=== PATIENT | male | born 1930 | race Caucasian/White ===

== ENCOUNTER → 2016-05-19 | Outpatient (CLI) | payer OTHER | LOC: BMCIMAGING 12:27 | PROVIDERS: ATTEND Internal Medicine | DX: J42 Unspecified chronic bronchitis (principal) ==

== ENCOUNTER → 2016-08-23 | Outpatient (CLI) | payer OTHER | LOC: FLAB 14:22 | PROVIDERS: ATTEND Internal Medicine | DX: R10.30 Lower abdominal pain, unspecified (principal) ==

== ENCOUNTER → 2016-08-24 | Outpatient (CLI) | payer OTHER ==
[~2016-08-24] MED LIST: IOPAMIDOL (ISOVUE-300) 100 ML BTL ONE
== END ==
LOC: FIMAGING 15:21
PROVIDERS: ATTEND Internal Medicine
DX: R10.30 Lower abdominal pain, unspecified (principal)
CPT/HCPCS: 74177; Q9967

== ENCOUNTER → 2016-11-22 | Outpatient (CLI) | payer OTHER | LOC: BMCIMAGING 10:10 | PROVIDERS: ATTEND Physician Assistant | DX: M25.812 Other specified joint disorders, left shoulder (principal); Z96.611 Presence of right artificial shoulder joint ==

== ENCOUNTER 2017-02-01 11:10 | Emergency (ER) | payer OTHER ==
[2017-02-01 11:18] VITALS: O2SAT 96
--- NOTE | 2017-02-01 11:41 | EDPHY ---
H & P Stated Complaint: pt fell last tue/has been off aspirin x 5 days/swelling r lower leg Time Seen by Provider: 02/01/17 11:41 HPI/ROS: CHIEF COMPLAINT: Right lower extremity swelling HISTORY OF PRESENT ILLNESS: The patient presents to the ED for evaluation of right lower extremity swelling. The patient had a mechanical fall last week. He has been ambulatory since that time. He has noticed over the past several days increased pain, swelling and calf tenderness on the right leg. The patient is not anticoagulated. He had been on aspirin which he stopped 5 days ago in anticipation of carpal tunnel surgery today. The patient was being evaluated by his orthopedic surgeon preoperatively when the asymmetric calf swelling was noted in the patient was referred to the ED for further evaluation. Patient denies any acute numbness or weakness. The patient denies prior history of DVT. Patient denies any chest pain or shortness of breath. The patient reports his pain is moderate in nature and worsened with palpation and ambulation. REVIEW OF SYSTEMS: A comprehensive 10 point review of systems is otherwise negative aside from elements mentioned in the history of present illness. Source: Patient Exam Limitations: No limitations - Personal History Current Tetanus/Diphtheria Vaccine: Yes Tetanus Vaccine Date: >10 YRS - Medical/Surgical History Hx Asthma: No Hx Chronic Respiratory Disease: No Hx Diabetes: No Hx Cardiac Disease: Yes Hx Renal Disease: No Hx Cirrhosis: No Hx Alcoholism: No Hx HIV/AIDS: No Hx Splenectomy or Spleen Trauma: No Other PMH: Pacemaker and arotic and yeast infection x 1 year. HTN - Social History Smoking Status: Former smoker - Physical Exam Exam: General: Elderly male, slightly obese, no acute distress Head: Atraumatic Eyes: Pupils equal, round, reactive ENT, Mouth: No hemotympanum, no oral trauma Neck: Nontender, trachea midline Respiratory: No chest wall tender, subcutaneous air, lungs clear bilaterally Cardiovascular: Regular rate and rhythm Abdomen: Abdomen is soft and nontender, pelvis stable Skin: Old abrasion noted to the right anterior smart with minimal surrounding erythema Back: No midline T/L/S pain Extremities: Asymmetric swelling and calf tenderness noted in the right leg, palpable dorsalis pedis and posterior tibial pulse Neurological: A&Ox3, normal motor function, normal sensory exam Constitutional: Initial Vital Signs Temperature (C) 36.4 C 02/01/17 11:16 Heart Rate 84 02/01/17 11:16 Respiratory Rate 18 02/01/17 11:16 Blood Pressure 116/97 H 02/01/17 11:16 O2 Sat (%) 96 02/01/17 11:16 O2 Delivery Mode Room Air Allergies/Adverse Reactions: No Known Allergies Allergy (Verified 02/01/17 11:15) Home Medications: Medication Instructions Recorded Metoprolol Succinate Xr [Toprol Xl 25 mg PO DAILY 04/06/12 25 mg (*)] Medical Decision Making - Diagnostics Imaging Results: Imaging Impressions Extremity Venous Study 02/01/17 11:55 Impression: No deep venous thrombosis right leg. 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 Results called and discussed with Dr. Sincere Burton on 02/01/2017, 13:00. Tibia/Fibula X-Ray 02/01/17 11:56 Impression: No evidence for acute fracture. Mild degenerative change in the right knee with mild suprapatellar joint effusion and loose body. Prepatellar bursitis or hematoma. Vascular calcifications which could represent atherosclerotic disease or diabetes. ED Course/Re-evaluation: The patient presents to the ED for evaluation of right calf pain and swelling. The patient has evidence of old abrasions on his examination but no clinical evidence of a significant cellulitis. The patient is afebrile and has no leukocytosis. Given his asymmetric calf pain and swelling a ultrasound was ordered which demonstrates a complex Roberts cyst but no evidence of a DVT. The patient has no clinical evidence of arterial insufficiency. Patient was informed of the diagnosis of Roberts cyst. I have asked the patient to repeat the ultrasound in 2 weeks for any ongoing pain or swelling. The patient has been advised to return to the ED for increasing redness, fever, pain or other concerns. Radiographs of the extremity demonstrated no evidence of an acute fracture. The patient does have vascular calcifications but no evidence of severe arterial insufficiency in the ED. Differential Diagnosis: Differential diagnosis considered includes cellulitis, abscess, DVT, Roberts cyst , arterial insufficiency - Data Points Laboratory Results: Laboratory Results 02/01/17 12:05 02/01/17 12:05 02/01/17 02/01/17 02/01/17 12:05 12:05 12:05 WBC 6.50 10^3/uL 10^3/uL (3.80-9.50) RBC 4.35 10^6/uL L 10^6/uL (4.40-6.38) Hgb 14.0 g/dL g/dL (13.7-17.5) Hct 40.4 % % (40.0-51.0) MCV 92.9 fL fL (81.5-99.8) MCH 32.2 pg pg (27.9-34.1) MCHC 34.7 g/dL g/dL (32.4-36.7) RDW 13.6 % % (11.5-15.2) Plt Count 165 10^3/uL 10^3/uL (150-400) MPV 9.3 fL fL (8.7-11.7) Neut % (Auto) 63.5 % % (39.3-74.2) Lymph % (Auto) 22.3 % % (15.0-45.0) Sterling % (Auto) 10.9 % % (4.5-13.0) Eos % (Auto) 2.2 % % (0.6-7.6) Baso % (Auto) 0.8 % % (0.3-1.7) Nucleat RBC Rel Count 0.0 % % (0.0-0.2) Absolute Neuts (auto) 4.13 10^3/uL 10^3/uL (1.70-6.50) Absolute Lymphs (auto) 1.45 10^3/uL 10^3/uL (1.00-3.00) Absolute Monos (auto) 0.71 10^3/uL 10^3/uL (0.30-0.80) Absolute Eos (auto) 0.14 10^3/uL 10^3/uL (0.03-0.40) Absolute Basos (auto) 0.05 10^3/uL 10^3/uL (0.02-0.10) Absolute Nucleated RBC 0.00 10^3/uL 10^3/uL (0-0.01) Immature Gran % 0.3 % % (0.0-1.1) Immature Gran # 0.02 10^3/uL 10^3/uL (0.00-0.10) PT 14.5 SEC SEC (12.0-15.0) INR 1.14 (0.83-1.16) APTT 31.4 SEC SEC (23.0-38.0) Sodium 136 mEq/L mEq/L (134-144) Potassium 4.4 mEq/L mEq/L (3.5-5.2) Chloride 102 mEq/L mEq/L (97-110) Carbon Dioxide 23 mEq/l mEq/l (22-31) Anion Gap 11 mEq/L mEq/L (8-16) BUN 17 mg/dL mg/dL (7-23) Creatinine 1.1 mg/dL mg/dL (0.7-1.3) Estimated GFR > 60 Glucose 89 mg/dL mg/dL (70-100) Calcium 9.3 mg/dL mg/dL (8.5-10.4) Departure - Departure Disposition: Home, Routine, Self-Care Clinical Impression: Roberts cyst Qualifiers: Laterality: right Qualified Code(s): M71.21 - 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 Please follow-up with your primary care provider as scheduled. 2. I recommend repeating the ultrasound in 2 weeks for any ongoing pain or swelling. 3. Return to the ED immediately for any increasing pain, redness, fever swelling or other concerns. Referrals: Mejia Simmons MD [Primary Care Provider] - As per Instructions
[2017-02-01 12:18] LABS: % IMMATURE GRANULYOCYTES 0.3 % (0.0-1.1); ABSOLUTE IMMATURE GRANULOCYTES 0.02 10^3/uL (0.00-0.10); ADD DIFF? NO; ADD MORPH? NO; ADD SCAN? NO; ATYPICAL LYMPHOCYTE FLAG 10 (0-99); FRAGMENT RBC FLAG 10 (0-99); HEMATOCRIT 40.4 % (40.0-51.0); LEFT SHIFT FLG 0 (0-99); LIPEMIA HEMOLYSIS FLAG 90 (0-99); MEAN CELL HEMOGLOBIN 32.2 pg (27.9-34.1); MEAN CELL HEMOGLOBIN CONCENTR. 34.7 g/dL (32.4-36.7); MEAN CELL VOLUME 92.9 fL (81.5-99.8); MEAN PLATELET VOLUME 9.3 fL (8.7-11.7); PLATELET CLUMPS FLAG 20 (0-99); PLATELET COUNT 165 10^3/uL (150-400); RED BLOOD CELL COUNT 4.35 10^6/uL (4.40-6.38); RED CELL DISTRIBUTION WIDTH 13.6 % (11.5-15.2)
[2017-02-01 12:27] LABS: INR 1.14 (0.83-1.16); PROTIME(PATIENT) 14.5 SEC (12.0-15.0)
[2017-02-01 12:28] LABS: APTT 31.4 SEC (23.0-38.0)
[2017-02-01 12:39] LABS: ANION GAP 11 mEq/L (8-16); CALCIUM 9.3 mg/dL (8.5-10.4); CARBON DIOXIDE 23 mEq/l (22-31); CHLORIDE 102 mEq/L (97-110); CREATININE 1.1 mg/dL (0.7-1.3); GLOMERULAR FILTRATION RATE > 60; GLUCOSE 89 mg/dL (70-100); POTASSIUM 4.4 mEq/L (3.5-5.2); SODIUM 136 mEq/L (134-144)
[2017-02-01 13:40] VITALS: BP 121/71; PULSE 75; RESP 16; TEMP 97.7
== END 2017-02-01 13:43 | disposition home or self-care (01) ==
DX: M71.21 Synovial cyst of popliteal space [Baker], right knee (principal); I10 Essential (primary) hypertension; Z95.0 Presence of cardiac pacemaker; Z87.891 Personal history of nicotine dependence

== ENCOUNTER → 2017-04-09 | Outpatient (CLI) | payer OTHER | LOC: BMCIMAGING 13:23 | PROVIDERS: ATTEND Emergency Medicine | DX: M79.671 Pain in right foot (principal) ==

== ENCOUNTER → 2017-04-20 | Outpatient (CLI) | payer OTHER | LOC: BMCIMAGING 14:11 | PROVIDERS: ATTEND Podiatrist Foot & Ankle Surgery | DX: M71.21 Synovial cyst of popliteal space [Baker], right knee (principal) ==

== ENCOUNTER 2017-12-22 08:50 | Day surgery (SDC) | payer OTHER ==
--- NOTE | 2017-12-22 06:30 | PDHPUP ---
History & Physical Update H&P update statement: This history and physical update is based on an assessment of the patient which was completed after admission or registration (within 24 hours), but prior to the surgery/procedure. H&P update: no change in patient's condition since H&P completed
[2017-12-22] MEDS ORDERED: LR 1,000 ML IV SCH (09:02)
[2017-12-22] MEDS ORDERED: ceFAZolin 2 GM/DEXTROSE 100 ML IV ONE (09:02)
[2017-12-22] MEDS ORDERED: LR 1,000 ML IV ONE (09:03)
[2017-12-22] MEDS ORDERED: LIDOCAINE 1% 2 ML INJ ID PRN (09:03)
--- NOTE | 2017-12-22 10:21 | PDANEPAE ---
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 htn. cad. chf. hyperlipidemia. tavr 05/2012. 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 bph. frequency - Liver History Hx Hepatic Disorders: No Hepatic History Comment: UTI-in hospital ABX, resolved. BPH-med. - Neurological & Psychiatric Hx Hx Neurological and Psychiatric Disorders: No - Cancer History Hx Cancer: No - Congenital Disorder History Hx Congenital Disorders: No Congenital History Comment: Stomach malformation-corrected. - GI History Hx Gastrointestinal Disorders: No - Other Health History Other Health History: wears reading classes. wears bilateral hearing aides. bilateral lower leg cellulitis at the beginning of the year - Chronic Pain History Chronic Pain: Yes (right wrist) - Surgical History Prior Surgeries: 09/2017 emergent zelda. appy 194. pacer 02/2012. knee surgery 1977. lumbar spine surgery 1993. nose surgery 1995. stomach surgery 1931. TAVR 05/19/12 ANE Review of Systems Review of Systems: - Exercise capacity METS (RN): 4 METS - Pacemaker Pacemaker Type: Permanent Pacer/Defib Pacemaker Fixer Supervisor: [employer] Pacemaker Model: EVIADRT Pacemaker Mode: DDD-CLS Pacemaker Set Rate: 70 Date Pacemaker Last Checked: 09/14/17 ANE Patient History - Allergies Allergies/Adverse Reactions: No Known Allergies Allergy (Verified 12/21/17 12:23) - Home Medications Home medications: home medication list seen and reviewed Home Medications: Metoprolol Succinate Xr [Toprol Xl 25 mg (*)] DAILY 04/06/12 [Last Taken 1 Day Ago ~12/21/17] Aspirin 81mg (*) 12/21/17 [Last Taken 1 Day Ago ~12/21/17] Atorvastatin Calcium 12/21/17 [Last Taken 1 Day Ago ~12/21/17] Flomax 12/21/17 [Last Taken 1 Day Ago ~12/21/17] Lasix 12/21/17 [Last Taken 12/21/17] - NPO status NPO Since - Liquids (Date): 12/21/17 NPO Since - Liquids (Time): 19:00 NPO Since - Solids (Date): 12/21/17 NPO Since - Solids (Time): 19:00 - Anes Hx Anes Hx: no prior problems - Smoking Hx Smoking Status: Former smoker - Family Anes Hx Family Hx Anesthesia Complications: none ANE Labs/Vital Signs - Labs Result Diagrams: 12/22/17 09:45 - Vital Signs Blood Pressure: 154/94 Heart Rate: 80 Respiratory Rate: 18 O2 Sat (%): 94 Height: 170.18 cm Weight: 96.162 kg ANE Physical Exam - Airway Neck exam: FROM Mallampati Score: Class 2 Mouth exam: normal dental/mouth exam - Pulmonary Pulmonary: no respiratory distress, clear to auscultation - Cardiovascular Cardiovascular: regular rate and rhythym - ASA Status ASA Status: III ANE Anesthesia Plan Anesthesia Plan: GA w LMA
[2017-12-22] MEDS ORDERED: BUPIVACAINE 0.5% 30 ML SDV ONE (10:45)
[2017-12-22] MEDS ORDERED: LIDOCAINE 1% 300 MG/30 ML SDV ONE (11:00)
[2017-12-22] MEDS ORDERED: fentaNYL 100 MCG/2 ML INJ ONE (11:01)
[2017-12-22] MEDS ORDERED: PROPOFOL/EMULSION 500 MG/50 ML BOTTLE IV ONE (11:01)
[2017-12-22] MEDS ORDERED: HYDROCODONE/APAP 5/325 TAB PO PRN (11:21)
[2017-12-22] MEDS ORDERED: PROMETHAZINE HCL 25 MG/ML INJ IVP PRN (11:38)
[2017-12-22] MEDS ORDERED: NALOXONE HCL 0.4 MG/ML INJ IVP PRN (11:38)
[2017-12-22] MEDS ORDERED: fentaNYL 100 MCG/2 ML INJ IVP PRN (11:38)
[2017-12-22] MEDS ORDERED: ONDANSETRON 4 MG/2 ML VIAL IVP PRN (11:38)
--- NOTE | 2017-12-22 11:39 | POSTANESTH ---
Post Anesthetic Evaluation Cardiovascular Status: Normal, Stable Respiratory Status: Normal, Stable Level of Consciousness/Mental Status: Can Participate in Eval Pain Control: Adequate, Prn Tx Ordered Nausea/Vomiting Control: Adequate, Prn Tx Ordered Complications Possibly Related to Anesthesia: None Noted
[2017-12-22 12:29] VITALS: BP 129/72
--- NOTE | 2017-12-25 11:32 | GOP ---
DATE OF OPERATION: 12/22/2017 SURGEON: Nitin English MD BABY SITTER: Jajgit Pleitez, DISTRICT PLANT SUPERVISOR, PRIZE FIGHTER PREOPERATIVE DIAGNOSIS: Right carpal tunnel syndrome. POSTOPERATIVE DIAGNOSIS: Right carpal tunnel syndrome. PROCEDURE PERFORMED: Right carpal tunnel release. FINDINGS: SPECIMENS: To Pathology, none. INDICATIONS: The patient is an 87-year-old gentleman who is well known to me. He has a longstanding history of right carpal tunnel syndrome. He has recently been medically cleared for surgical interv ention and wishes to proceed. DESCRIPTION OF PROCEDURE: The patient was identified in the preanesthesia area. The right wrist was clearly demarcated as the operative site with indelible marker. He was given 2 g of Ancef intraveno usly en route to the operative suite. In the OR, sedation was performed followed by local administra tion along the carpal tunnel with 2% lidocaine plain and 2% Marcaine in a racemic mixture. No tourni quet was used. The appropriate time-out procedure was carried out. An Esmarch bandage was placed an d left at the mid forearm as a partial tourniquet. A linear incision was made over the proximal palm . It was carried sharply through the skin and subcutaneous tissue under tension. The transverse car pal ligament was transected. This was thickened and was released both proximally and distally into t he aponeurosis into the bifurcation of the digital nerves. The floor of the canal was evaluated.. T here were no masses or lesions. Wound was irrigated and closed at the skin only using 3-0 nylon sutu re. The wound was instilled with 10 cc of the numbing medicine mixture as above. A sterile dressing with a volar wrist splint in 5 degrees of extension was placed. The patient was awakened, extubated , and taken to recovery room in good, stable condition. TOTAL TOURNIQUET TIME: 11 minute. COMPLICATIONS: None. IMPLANTS: None. /[id number]/MODL
== END 2017-12-22 12:30 | disposition home or self-care (01) ==
LOC: FSGY 08:50
PROVIDERS: ATTEND Orthopaedic Surgery
PROC: 01N50ZZ Release Median Nerve, Open Approach (ICD-10-PCS; principal; 2017-12-22 11:00)
DX: G56.01 Carpal tunnel syndrome, right upper limb (principal); I10 Essential (primary) hypertension; I44.1 Atrioventricular block, second degree; Z95.0 Presence of cardiac pacemaker; I25.10 Atherosclerotic heart disease of native coronary artery without angina pectoris; I50.9 Heart failure, unspecified; E78.5 Hyperlipidemia, unspecified; G47.30 Sleep apnea, unspecified; Z86.73 Personal history of transient ischemic attack (TIA), and cerebral infarction without residual deficits
CPT/HCPCS: J0690; J2704; J3010